=== PATIENT | male | born 1980 | race Two or more races ===

== ENCOUNTER 2019-08-06 22:18 | Emergency (ER) | payer OTHER ==
[~2019-08-06] VITALS: Ht 172.7 cm; Wt 106.6 kg
[~2019-08-06 22:18] MED LIST: ASPI81TA31 PO; GABA-534 PO; GLIP5TAB13 PO; LISI-607 PO; METF-441 PO
[2019-08-06] MEDS ORDERED: [UNRECOGNIZED DRUG - REMARK] (22:35)
[2019-08-06] MEDS ORDERED: GEMF600T5 PO (22:35)
--- NOTE | 2019-08-06 22:55 | NUR ---
SEEN BY JUDIT FOR MSE
[2019-08-06] MEDS ORDERED: LIDOCAINE VISCUS 2% 15 ML UDC MM ONE (23:00)
[2019-08-06] MEDS ORDERED: MAG HYDROX/AL HYDROX/SIMETH 30 ML LIQUID UDC PO ONE (23:00)
[2019-08-06] MEDS ORDERED: PANTOPRAZOLE SODIUM 40 MG TABLET.DR PO ONE ×2 (23:00→23:08)
[2019-08-06] MEDS ORDERED: LIDOCAINE VISCUS 2% 15 ML UDC ONE (23:08)
[2019-08-06] MEDS ORDERED: MAG HYDROX/AL HYDROX/SIMETH 30 ML LIQUID UDC ONE (23:08)
--- NOTE | 2019-08-06 23:09 | NUR ---
GIVEN GI COCKTAIL ,PROTONIX 40 MG PO ,MAALOX SUSPENSION AND XYLOCAINE VISCUS PO C/O STOMACH PAIN.
--- NOTE | 2019-08-06 23:51 | NUR ---
Patient discharged to home in stable conditon. Written and verbal after care instructions given. Patient verbalizes understanding of instructions.V/S WNL ,DISCHARGE PATIENT STEADY OF GAIT WENT HOME WITH ,WITH PRESCRIPTION AND BELONGINGS .
[2019-08-06 23:53] VITALS: BP 110/75
== END 2019-08-06 23:53 | disposition home or self-care (01) ==
LOC: ER 22:19
DX: K29.70 Gastritis, unspecified, without bleeding (principal); I10 Essential (primary) hypertension; E78.5 Hyperlipidemia, unspecified; E11.9 Type 2 diabetes mellitus without complications; Z79.82 Long term (current) use of aspirin; Z79.899 Other long term (current) drug therapy
CPT/HCPCS: A4663